=== PATIENT | female | born 2000 | race Caucasian/White ===

== ENCOUNTER 2019-01-02 12:27 | Observation (INO) ==
--- NOTE | 2019-01-02 13:45 | OB/GYN Progress Note ---
Date of Encounter: 01/02/19 Time of Encounter: 13:43 - Assessment and Plan (1) 38 weeks gestation of Current Visit: Yes Status: Acute (2) Nausea & vomiting Current Visit: Yes Status: Acute Pt is able to keep down fluids. Suspect this is related to heartburn. Rx pepcid and zofran. Discharge home with precautions. Follow-up as scheduled. Qualifiers: Vomiting type: unspecified Vomiting Intractability: non-intractable Qualified Code(s): R11.2 - Nausea with vomiting, unspecified (3) Heartburn during in third trimester Current Visit: Yes Status: Acute Subjective - Subjective Interval history: 18 year-old female presenting at 38w3d with c/o heartburn and vomiting. She reports she has been able to keep down fluids but not food for the last 2 days. No leaking, cramping or bleeding. Pt denies feeling contractions. Good FM. No other complaints. Antepartum ROS: movement normal, no loss of fluid, no vaginal bleeding, no contractions Objective - Vital Signs Vital Signs: Intake and Output 01/01/19 01/02/19 01/02/19 23:59 07:59 15:59 Other: Weight 71.4 kg Patient Weight 01/02/19 23:59 Weight 71.4 kg - Exam FHR: category 1 FHR comments: 145 RNST Auscultation: bilateral: normal Abdomen: Present: soft, gravid Uterus: Absent: tenderness Comments: Pt drinking water. No emesis while in triage
== END 2019-01-02 14:31 | disposition home or self-care (01) ==
LOC: 1NENULAB
PROVIDERS: ADMIT Registered Nurse; ATTEND Registered Nurse

== ENCOUNTER 2019-01-16 04:00 | Inpatient (IN) ==
[2019-01-16] MEDS ORDERED: *HR* Nalbuphine 10 MG/ML AMPUL IVP PRN (04:43)
[2019-01-16] MEDS ORDERED: Naloxone 0.4 MG/ML INJ IVP PRN (04:43)
[2019-01-16] MEDS ORDERED: Metoclopramide 10 MG/2 ML VIAL IVP PRN (04:43)
[2019-01-16] MEDS ORDERED: Famotidine 20 MG/2 ML VIAL IVP PRN (04:43)
[2019-01-16] MEDS ORDERED: Penicillin G Potassium 5,000,000 UNIT in 0.9 % Sodium Chloride Mini Bag 100 ML IVPB ONE (04:46)
[2019-01-16 05:48] LABS: Basophils % 0.4 %; Eosinophils # 0.1 K/mcL (0.0-0.6); Eosinophils % 1.6 %; Hematocrit 35.8 % (35.3-44.9); Hemoglobin 11.7 g/dL (11.5-15.4); Immature Granulocytes % 1.3 % (0-4); Lymphocytes # 2.4 K/mcL (0.6-4.6); Lymphocytes % 28.7 %; Mean Corpuscular HGB Conc 32.7 g/dL (31.6-35.5); Mean Corpuscular Hemoglobin 27.7 pg (28.0-33.3); Mean Corpuscular Volume 84.8 fL (83.0-100.0); Mean Platelet Volume 11.2 fL (9.4-12.4); Monocytes # 0.7 K/mcL (0.0-1.3); Neutrophils # 4.9 K/mcL (1.6-8.9); Platelet Count 189 K/mcL (140-400); Red Blood Count 4.22 M/mcL (3.82-4.97); Red Cell Distribution Width 14.8 % (11.5-14.5); White Blood Count 8.2 K/mcL (4.3-11.1)
[2019-01-16] MEDS ORDERED: Oxytocin 20 units/ LR 1000 mL 20 UNIT/1,000 ML BAG IVC SCH ×2 (06:30→23:17)
[2019-01-16] MEDS ORDERED: Bupivacaine-MPF 0.25% 10 ML VIAL EP ONE (08:22)
[2019-01-16] MEDS ORDERED: *HR* FentaNYL (PF) 100 MCG/2 ML VIAL EP ONE (08:22)
--- NOTE | 2019-01-16 08:22 | Anesthesia Evaluation PreOp ---
Date of Encounter: 01/16/19 Time of Encounter: 08:19 - Past History Planned Operation: JENISE Cardiac History: Denies any Significant Hx Pulmonary History: Denies Any Significant HX FAMILY MEDICINE PHYSICIAN History: Denies Any Significant HX Other Medical History: Denies Any Significant HX Anesthesia History: No Prior Anesthetic Complications (never had NA or GA; denies family h/o GA complications) : Yes Alcohol Use: none Drug use: none Medications and Allergies Tablet 1 tab PO DAILY 01/02/19 [History] Allergy/AdvReac Type Severity Reaction Status Date / Time No Known Allergies Allergy Verified 01/16/19 04:42 - Meds/Allergy Pre-op Review Medications Reviewed: Yes Allergies Reviewed: Yes Beta Blockers on Current Med List: No Anesthesia Results - Labs 01/16/19 04:50 Anesthesia Exam 110/74, HR 80 O2 Sat Height 1.65 m Weight 72.121 kg NPO (# of Hours): solids > 8hrs Pain Scale: 0 Pain Scale Used: Numeric (1 - 10) - HEENT Pupil (Motor): Pupils equal Mallampati: II Teeth: Normal Oral Opening: Greater than 3 - FAMILY MEDICINE PHYSICIAN LOC: Oriented FAMILY MEDICINE PHYSICIAN Motor: Normal RUE, Normal LUE, Normal RLE, Normal LLE, Normal Face FAMILY MEDICINE PHYSICIAN Sensory: Normal: RUE, LUE, RLE, LLE, Face - Cardiac Rhythm: Regular Murmur: None - Pulmonary Breath Sounds: bilateral Clear Respiratory Effort: Symmetrical Anesthesia Assess/Plan ASA Score: 2 Level of consciousness: Cooperative, Oriented, Tranquil Anesthetic Plan: Epidural Autologous Blood: No Monitoring Plan: Standard Monitors Recovery Plan: Other
[2019-01-16] MEDS ORDERED: Epidural Premix (fent/bupiv) 110 ML EP SCH (08:30)
[2019-01-16] MEDS: Penicillin G Potassium 2,500,000 UNIT in 0.9 % Sodium Chloride 100 ML IVPB SCH ×3 (09:37→17:43)
--- NOTE | 2019-01-16 13:04 | Event Note ---
Date of Encounter: 01/16/19 Time of Encounter: 13:03 18-year-old prima parous patient presents to labor and delivery in labor. On examination she is 3 cm 70% effaced and -1 station. A Underwood induction was started with 60 mL Underwood. Pitocin has been started. Contractions irregular at every 2 minutes. Category 1 tracing in the 120s to 130s. Underwood placed without any difficulty.
[2019-01-16] MEDS: Ringers Solution, Lactated 1,000 ML IVC SCH ×2 (13:26→17:38)
--- NOTE | 2019-01-16 14:01 | Anesthesia Procedures ---
Date of Encounter: 01/16/19 Time of Encounter: 13:24 Procedures: Anesthesia - Epidural/Spinal Patient ID/Chart reviewed: Yes Patient examined: Yes OB Eval: Gestational age: 40 weeks 3 days OB Eval: : 2 OB Eval: Hx Para: 0 OB Eval: Contractions: Non-stressed pattern Consent Obtained: Yes Supplemental Oxygen: None/Room Air Site Prep: Aseptic Technique, Sterile prep and drape, 0.5% Chlorhexidine/Alcohol Patient position: upright Local Anesthetic: Lidocaine 1% Amount of Local Anesthetic used: 3 Touhy Needle Gauge: 18 Touhy Needle Depth (cm): 4 Catheter Depth at Skin (cm): 9 Test Dose (1.5% Lido + Epi): Volume given (mls): 5 Test Dose Result: Negative Loading Dose: 0.25% Marcaine (mls): 5 Loading Dose: Fentanyl (mcg): 100 Loading Dose Administered: Thru Catheter Infusion Med: 0.125% Bupivacaine w/ 2 mcg/ml Fentanyl Infusion Rate (mls/hr): 14 (w/ demand bolus of 5mL q30min PRN) Catheter Secured in Place: Tegaderm, Tape Loss of Resistance (LEONARDA): Yes Blood: No CSF: No Paresthesia: No Procedure: successful on 1st attempt; patient tolerated procedure well; VSS Vitals + FHT's: see Anupama LEDBETTER's electronic records for VS entry.
--- NOTE | 2019-01-16 14:57 | Event Note ---
Date of Encounter: 01/16/19 Time of Encounter: 14:56 Vaginal exam performed. Underwood and vagina and removed. Cervix now 8 cm 80% effaced and -1 station. Artificial rupture membranes was performed with light meconium-stained fluid. Contractions every 2 minutes. Category 1 tracing heart rate in the 140s to 150s
--- NOTE | 2019-01-16 15:18 | OB/GYN History & Physical ---
Date of Encounter: 01/16/19 Time of Encounter: 12:00 Assessment and Plan (1) 40 weeks gestation of Current visit: Yes Status: Acute History of Present Illness Chief complaint: labor HPI: Ms. Coleman is a 18 year old female who presented to labor and delivery in labor. She is currently 40 weeks and 2 days. On presentation she is 2 cm 50% effaced and -1 station. She is doing well without complaints. She has no drug allergies. She is currently on vitamins. She has no chronic medical conditions. Surgical history is negative. She has no history of abnormal Pap smears, STDs or pelvic infections. Socially she denies tobacco, alcohol, illicit drug use. Family history is noncontributory. Past Med Surg Social Fam HX - Past Medical History Medical history: no medical history Psychiatric history: no psych history - Past Surgical History Surgical History: no surgical history - Social History Smoking Status: Never smoker Smokeless Tobacco Status: No Alcohol use: none Drug use: none - Family History Mother Hx Family Cardiac Disorders: No Hx Family Respiratory Disorders: No Hx Family Cancer: No Hx Family GI Disorders: No Hx Family Genitourinary Disorders: No Hx Family Endocrine Disorder: No Hx Family Musculoskeletal Disorders: No Hx Family Neuromuscular Disorders: No Hx Family Neurologic Disorders: No Hx Family HEENT Disorders: No Hx Family Autoimmune Disorders: No Hx Family Reproductive Disorders: No Hx Family Psychosocial Disorders: No Hx Family Medical Disorders: No Obstetrical History - Pregnancies : 1 Medications and Allergies Tablet 1 tab PO DAILY 01/02/19 [History] Allergy/AdvReac Type Severity Reaction Status Date / Time No Known Allergies Allergy Verified 01/16/19 04:42 Review of System OB All systems PM: reviewed and no additional remarkable complaints except as stated Exam - Constitutional Constitutional: well developed, well nourished, no acute distress, average body habitus - HEENT HEENT: EOMI, PERRL, Normocephaly - Neck Neck exam: full ROM, normal inspection - Lungs Respiratory exam: CTAB - Cardiovascular Cardiovascular exam: RRR - Abdomen Abdomen: Present: bowel sounds normal, gravid, non tender - Extremities Extremities exam: full ROM, normal inspection - Vagina Vagina: Present: normal moisture - Cervix Dilation: 2 Effacement: 50 Station: -2 - Uterus Uterus exam: Present: normal size Results Result Diagrams: 01/16/19 04:50 Abnormal lab results MCH 27.7 pg (28.0-33.3) L 01/16/19 04:50 RDW 14.8 % (11.5-14.5) H 01/16/19 04:50 All other labs normal. - VTE Reasons for not Prescribing Prophylaxis: Treatment not Indicated - Low risk for VTE
--- NOTE | 2019-01-16 20:57 | OB/GYN Procedure Note ---
Delivery - Delivery Date: 01/16/19 Provider: Luís Galeano Intrapartum events: none Delivery induction: oxytocin, marinelli Delivery augmentation: rupture of membranes Delivery monitor: external FHT, external uterine Anesthesia: epidural Quantitated Blood Loss: 500 - Infant (s) Infant A Delivery Date: 01/16/19 Delivery Time: : Presentation: vertex Position: OP Route of delivery: Gender: Female Viability: Viable Pounds: 9 Ounces: 4 Weight Gram: 4.185 kg at 1 minute: 8 at 5 mins: 9 Shoulder Dystocia: encountered Shoulder Dystocia Maneuvers: Chyna maneuver, suprapubic pressure, Horner Screw maneuver Shoulder dystocia time elapsed: 1 minute and 50 seconds Specimens collected: cord blood Placenta: spontaneous Cord: 3 umbilical vessels - Repair Episiotomy: none Laceration Description: Vaginal - Complications Delivery complications: none Delivery comments: This patient progressed complete and pushing. 's head was in the perineum in occiput posterior presentation with minimal difficulty. At this time a shoulder dystocia was encountered. There was a cord around the neck 1 which is easily reduced. Patient was placed in Chyna maneuver and suprapubic pressure was utilized. The other shoulder was attempted to be delivered. I could not rotate infant around and would screw fashion. I went back to Chyna maneuver with more force from the nurse and suprapubic pressure. This released the anterior shoulder. It was able then to come down. The was then delivered and cried immediately upon delivery. The cord was clamped and cut. The infant was then passed to the NICU team in attendance. Cord gases and cord blood were obtained. The placenta was then delivered spontaneously intact. There are no cervical periurethral or perineal lacerations noted. There was a small vaginal laceration which was repaired with 3-0 Vicryl suture in a running nonlocking fashion. Patient delivered a female weight was 9 lbs. 4 oz., 4185 g. Apgars are 81 minute and 9 at 5 minutes. Estimated blood loss 500 mL. The total time of shoulder dystocia was 1 minute 50 seconds - Disposition Mom disposition: stable in LDR [place] disposition: stable in LDR
[2019-01-16] MEDS ORDERED: Oxytocin 20 units/ LR 1000 mL 20 UNIT/1,000 ML BAG IVC ONE (21:08)
[2019-01-16] MEDS ORDERED: Acetaminophen 325 MG TABLET PO ONE (22:04)
[2019-01-16] MEDS ORDERED: Acetaminophen 325 MG TABLET PO PRN (23:17)
[2019-01-16] MEDS ORDERED: Measles/Mumps/Rubella Vacc 0.5 ML VIAL SQ PRN (23:17)
[2019-01-16] MEDS ORDERED: Ibuprofen 600 MG TABLET PO PRN (23:17)
[2019-01-17 05:54] LABS: Basophils % 0.2 %; Eosinophils % 0.1 %; Hematocrit 31.5 % (35.3-44.9); Hemoglobin 10.5 g/dL (11.5-15.4); Immature Granulocytes % 0.7 % (0-4); Lymphocytes % 13.6 %; Mean Corpuscular HGB Conc 33.3 g/dL (31.6-35.5); Mean Corpuscular Hemoglobin 27.9 pg (28.0-33.3); Mean Corpuscular Volume 83.8 fL (83.0-100.0); Mean Platelet Volume 11.3 fL (9.4-12.4); Monocytes # 1.5 K/mcL (0.0-1.3); Neutrophils # 11.2 K/mcL (1.6-8.9); Platelet Count 141 K/mcL (140-400); Red Blood Count 3.76 M/mcL (3.82-4.97); Red Cell Distribution Width 14.7 % (11.5-14.5); Segmented Neutrophils % 75.4 %
[2019-01-17 06:06] LABS: White Blood Count 14.8 K/mcL (4.3-11.1)
[2019-01-17] MEDS ORDERED: Prenatal Vit/FA 1 EACH TABLET PO SCH (09:00)
--- NOTE | 2019-01-17 09:24 | OB/GYN Progress Note ---
Date of Encounter: 01/17/19 Time of Encounter: 09:22 - Assessment and Plan (1) Vaginal delivery Current Visit: Yes Status: Acute Continue routine care anticipate discharge home tomorrow. Subjective - Subjective Principal diagnosis: day 1 Interval history: Patient is day 1. Vaginal delivery with shoulder dystocia. Patient reports mild pain. Reports light lochia without blood clots. Patient reports: appetite normal, voiding normally, pain well controlled, ambulating normally : doing well, bottle feeding Objective - Latest Vital Signs Latest vital signs: Vital Signs Temp Pulse Resp BP Pulse Ox 01/17/19 07:40 98.8 F 67 20 99/59 98 01/17/19 03:59 99.3 F 01/17/19 01:17 98.4 F 69 14 124/89 95 01/17/19 00:15 100.3 F H 84 14 123/87 100 01/16/19 23:15 101.5 F H 76 14 116/78 98 Intake and Output 01/16/19 01/17/19 01/17/19 23:59 07:59 15:59 Intake Total 1000 / 1200 600 / 600 Output Total 1900 / 1900 1400 / 1400 Balance -900 / -700 -800 / -800 Intake: IV Fluids 1000 / 1200 Lactated Ringers 1,000 ML @ 125 1000 / 1000 mls/hr IVC .Q8H FRAN Rx#: [id number] Oral 600 / 600 Output: Urine 500 / 500 1400 / 1400 Catheter 1400 / 1400 Other: Weight 67 kg - Exam Lungs: bilateral: normal Chest: Normal S1, Normal S2 Extremities: Present: normal Abdomen: Present: normal appearance, soft Uterus: Present: normal, firm Uterus Position: At Umbilicus, Midline - Labs Labs: Laboratory Results - last 24 hr 01/17/19 05:08 WBC 14.8 H D RBC 3.76 L Hgb 10.5 L Hct 31.5 L MCV 83.8 MCH 27.9 L MCHC 33.3 RDW 14.7 H Plt Count 141 MPV 11.3 Immature Gran % 0.7 Seg Neutrophils % 75.4 Lymphocytes % 13.6 Monocytes % 10.0 Eosinophils % 0.1 Basophils % 0.2 Neutrophils # 11.2 H Lymphocytes # 2.0 Monocytes # 1.5 H Eosinophils # 0.0 Basophils # 0.0
--- NOTE | 2019-01-17 21:02 | Discharge Summary ---
Date of Encounter: 01/17/19 Time of Encounter: 21:00 - Discharge Diagnosis (1) Vaginal delivery Priority: Primary Status: Acute Comments: continue routine care discharge home today per patient request follow up with Dr. Galeano in 4-6 weeks - Discharge Medications Prescriptions: New Ibuprofen [Motrin] 600 mg PO Q6HR PRN #60 tablet PRN Reason: Cramping Continued Tablet 1 tab PO DAILY Home Medications: Tablet 1 tab PO DAILY 01/02/19 [History] Ibuprofen [Motrin] 600 mg PO Q6HR PRN #60 tablet 01/17/19 [Rx] Allergies/Adverse Reactions: Allergy/AdvReac Type Severity Reaction Status Date / Time No Known Allergies Allergy Verified 01/16/19 04:42 Data Procedures and tests throughout hospitalization: Laboratory Tests 01/16/19 01/17/19 04:50 05:08 WBC 8.2 14.8 H D RBC 4.22 3.76 L Hgb 11.7 10.5 L Hct 35.8 31.5 L MCV 84.8 83.8 MCH 27.7 L 27.9 L MCHC 32.7 33.3 RDW 14.8 H 14.7 H Plt Count 189 141 MPV 11.2 11.3 Immature Gran % 1.3 0.7 Seg Neutrophils % 60.0 75.4 Lymphocytes % 28.7 13.6 Monocytes % 8.0 10.0 Eosinophils % 1.6 0.1 Basophils % 0.4 0.2 Neutrophils # 4.9 11.2 H Lymphocytes # 2.4 2.0 Monocytes # 0.7 1.5 H Eosinophils # 0.1 0.0 Basophils # 0.0 0.0 Labs on day of discharge: Labs from last 24 hours 01/17/19 05:08 WBC 14.8 H D RBC 3.76 L Hgb 10.5 L Hct 31.5 L MCV 83.8 MCH 27.9 L MCHC 33.3 RDW 14.7 H Plt Count 141 MPV 11.3 Immature Gran % 0.7 Seg Neutrophils % 75.4 Lymphocytes % 13.6 Monocytes % 10.0 Eosinophils % 0.1 Basophils % 0.2 Neutrophils # 11.2 H Lymphocytes # 2.0 Monocytes # 1.5 H Eosinophils # 0.0 Basophils # 0.0 Date of admission: 01/16/19 04:05 Consults: 01/16/19 23:17 Consult to Real Estate Administrator [CONS] Routine Comment: Vaginal delivery, consult needed Discharging clinician: Maura Greenfield Anticipated date of discharge: 01/17/19 - Patient Status Disposition: Home, Self-Care Condition: Good Functional capacity at discharge: independent ambulation - Discharge Instructions Follow Up With: Luís Galeano MD [Partnered Physician] - - Diet and Activity Activity: increase activity as tolerated Diet: regular diet Hospital Course Reason for admission: induction of labor Delivery: , other (shoulder dystocia) Episiotomy: none Laceration: vaginal side wall Other procedures: none complications: none Discharge diagnosis: IUP at term delivered baby: female (bottle feeding) Time Attestation: Total time spent providing and/or coordinating discharge services: Time Spent: Less than 30 minutes Exam - Constitutional Vitals: Temp Pulse Resp BP Pulse Ox 98.2 F 65 20 94/60 98 01/17/19 15:43 01/17/19 15:43 01/17/19 15:43 01/17/19 15:43 01/17/19 15:43
[2019-01-17] MEDS ORDERED: Methylergonovine 0.2 MG/ML AMPUL IM ONE (21:34)
[2019-01-17] MEDS ORDERED: miSOPROStol 100 MCG TABLET PO ONE (21:34)
[2019-01-17 23:54] VITALS: BP 114/75
== END 2019-01-17 21:35 | disposition home or self-care (01) | DRG 560 ==
LOC: 1NENULAB 04:05 → 1NENUOBS 23:13
PROVIDERS: ADMIT Obstetrics & Gynecology; ATTEND Obstetrics & Gynecology

== ENCOUNTER 2021-03-26 06:06 | Inpatient (IN) ==
[2021-03-26] MEDS ORDERED: Lidocaine 1% 20 ML MDV INFILT PRN (06:15)
[2021-03-26] MEDS ORDERED: *HR* Nalbuphine 10 MG/ML AMPUL IV PRN (06:15)
[2021-03-26] MEDS ORDERED: Ringers Solution, Lactated 1,000 ML IVC SCH (06:15)
[2021-03-26] MEDS ORDERED: Oxytocin 20 units/ LR 1000 mL 20 UNIT/1,000 ML BAG IVC SCH ×3 (06:15→17:50)
[2021-03-26] MEDS ORDERED: Azithromycin 500 MG in 0.9 % Sodium Chloride 250 ML IVPB PRN (06:15)
[2021-03-26] MEDS ORDERED: Ondansetron 4 MG/2 ML VIAL IVP PRN (06:15)
[2021-03-26] MEDS ORDERED: Naloxone 0.4 MG/ML INJ IVP PRN (06:15)
[2021-03-26] MEDS ORDERED: Famotidine 20 MG/2 ML VIAL IVP PRN (06:15)
[2021-03-26] MEDS ORDERED: Metoclopramide 10 MG/2 ML VIAL IVP PRN (06:15)
[2021-03-26] MEDS ORDERED: miSOPROStoL 25 MCG TABLET PO PRN (06:15)
[2021-03-26] MEDS ORDERED: Ringers Solution, Lactated 1,000 ML ONE (06:16)
[2021-03-26] MEDS ORDERED: EPHEDrine 50 MG/ML VIAL IVP PRN (06:32)
[2021-03-26] MEDS ORDERED: Epidural Premix (fent/bupiv) 110 ML EP SCH (06:45)
[2021-03-26] MEDS ORDERED: Penicillin G Potassium 5,000,000 UNIT in 0.9 % Sodium Chloride Mini Bag 100 ML IVPB ONE (06:53)
[2021-03-26 07:19] LABS: Basophils % 0.4 %; Eosinophils # 0.1 K/mcL (0.0-0.6); Eosinophils % 1.1 %; Hematocrit 36.1 % (35.3-44.9); Hemoglobin 12.3 g/dL (11.5-15.4); Immature Granulocytes % 1.1 % (0-4); Lymphocytes # 2.5 K/mcL (0.6-4.6); Lymphocytes % 33.2 %; Mean Corpuscular HGB Conc 34.1 g/dL (31.6-35.5); Mean Corpuscular Hemoglobin 28.3 pg (28.0-33.3); Mean Corpuscular Volume 83.2 fL (83.0-100.0); Monocytes # 0.8 K/mcL (0.0-1.3); Neutrophils # 4.1 K/mcL (1.6-8.9); Platelet Count 179 K/mcL (140-400); Red Blood Count 4.34 M/mcL (3.82-4.97); Red Cell Distribution Width 14.2 % (11.5-14.5); Segmented Neutrophils % 54.2 %; White Blood Count 7.5 K/mcL (4.3-11.1)
[2021-03-26 07:54] LABS: Amphetamine Screen,Urine Negative ng/mL (Cutoff=1000); Barbiturate Screen,Urine Negative ng/mL (Cutoff=200)
[2021-03-26 07:55] LABS: Benzodiazepines Screen,Urine Negative ng/mL (Cutoff=300); Cannabinoid Screen,Urine Negative ng/mL (Cutoff = 50); Cocaine Screen,Urine Negative ng/mL (Cutoff= 300); Opiate Screen,Urine Negative ng/mL (Cutoff=300); Phencyclidine Screen,Urine Negative ng/mL (Cutoff=25)
[2021-03-26] MEDS ORDERED: Penicillin G Potassium 2,500,000 UNIT/105 ML MLS IVPB SCH (11:00)
[2021-03-26] MEDS ORDERED: Measles/Mumps/Rubella Vacc 0.5 ML VIAL SQ PRN (17:50)
[2021-03-26] MEDS ORDERED: Ondansetron ODT 4 MG TAB.RAPDIS SL PRN (17:50)
[2021-03-26] MEDS ORDERED: Rho Immune Globulin 1,500 UNIT SYRINGE IM PRN (17:50)
[2021-03-26] MEDS ORDERED: Benzocaine/Menthol 56 GM AEROSOL SPRAY TP PRN (17:50)
[2021-03-26] MEDS ORDERED: Lanolin 7 G OINT...G. TP PRN (17:50)
[2021-03-26] MEDS: Acetaminophen 325 MG TABLET PO SCH (18:59)
[2021-03-26] MEDS: Ibuprofen 600 MG TABLET PO SCH (19:53)
[2021-03-27] MEDS: Acetaminophen 325 MG TABLET PO SCH (00:39)
[2021-03-27 03:42] VITALS: BP 112/58; PULSE 87; TEMP 97.7; O2SAT 98
[2021-03-27 04:05] LABS: Basophils # 0.1 K/mcL (0.0-0.2); Basophils % 0.5 %; Eosinophils # 0.1 K/mcL (0.0-0.6); Eosinophils % 0.7 %; Hematocrit 36.2 % (35.3-44.9); Hemoglobin 11.8 g/dL (11.5-15.4); Immature Granulocytes % 0.7 % (0-4); Lymphocytes # 2.7 K/mcL (0.6-4.6); Lymphocytes % 26.6 %; Mean Corpuscular HGB Conc 32.6 g/dL (31.6-35.5); Mean Corpuscular Hemoglobin 27.4 pg (28.0-33.3); Mean Platelet Volume 12.1 fL (9.4-12.4); Monocytes # 0.8 K/mcL (0.0-1.3); Monocytes % 8.4 %; Neutrophils # 6.3 K/mcL (1.6-8.9); Platelet Count 141 K/mcL (140-400); Red Blood Count 4.31 M/mcL (3.82-4.97); Red Cell Distribution Width 14.3 % (11.5-14.5); Segmented Neutrophils % 63.1 %
[2021-03-27] MEDS: Ibuprofen 600 MG TABLET PO SCH (06:16)
[2021-03-27] MEDS ORDERED: Prenatal Vit/FA 1 EACH TABLET PO SCH (09:00)
== END 2021-03-27 07:05 | disposition home or self-care (01) | DRG 560 ==
LOC: 1NENULAB 06:06 → 1NENUOBS 17:47
PROVIDERS: ADMIT Obstetrics & Gynecology; ATTEND Obstetrics & Gynecology